=== PATIENT | female | born 1960 | race Caucasian/White ===

== ENCOUNTER → 2019-12-02 | Outpatient (CLI) | payer MEDICAID ==
[~2019-12-02] MED LIST: CARV6.252 PO; CHOL2000 PO; FAMO-79 PO; LISI40TA PO; NICO-430 TD; TERA2CAP3 PO; VERA80TA25 PO
== END | disposition home or self-care (01) ==
LOC: RAD 16:30
PROVIDERS: ATTEND Nurse Practitioner Family
DX: M70.51 Other bursitis of knee, right knee (principal); M79.605 Pain in left leg; L03.91 Acute lymphangitis, unspecified

== ENCOUNTER 2020-05-10 14:49 | Inpatient (IN) | payer MEDICAID ==
[~2020-05-10] VITALS: Ht 157.5 cm; Wt 57.9 kg
--- NOTE | 2020-05-10 15:10 | NUR ---
ASSUMED CARE OF PATIENT. PATIENT BIB [facility] FOR LOW BACK PAIN. VSS. A&OX4. C/O BACK PAIN, N/V, AND HAS MISSED DIALYSIS - LAST SESSION 04/30/20.
[2020-05-10 15:41] LABS: BASOPHILS % (AUTO) 1 % (0-1); EOSINOPHILS % (AUTO) 4 % (1-7); LYMPHOCYTES % (AUTO) 9 % (22-44); MEAN CORPUSCULAR HEMOGLOBIN 29.4 pg (27.0-34.8); MEAN CORPUSCULAR HGB CONC 32.4 g/dL (32.4-35.8); MEAN PLATELET VOLUME 8.4 fL (7.4-10.4); MONOCYTES % (AUTO) 6 % (2-9); NEUTROPHILS % (AUTO) 79 % (42-75); PLATELET COUNT 102 x10^3/uL (130-400); RED BLOOD COUNT 3.09 x10^6/uL (3.82-5.3); RED CELL DISTRIBUTION WIDTH 16.5 % (9.6-15.2)
[2020-05-10 15:52] LABS: ANION GAP 13 mmol/L (5-15); CALCIUM 10.6 mg/dL (8.5-10.1); CHLORIDE 93 mmol/L (98-107)
--- NOTE | 2020-05-10 16:04 | NUR ---
CRITICAL LABS: K+ 6.5 AND BUN 153. NOTIFIED
[2020-05-10 16:11] LABS: MD MORPH REVIEW ONLY
[2020-05-10 16:13] LABS: ANISOCYTOSIS 1+
[2020-05-10 16:14] LABS: <PLATELET ESTIMATE> DECREASED; <PLT MORPHOLOGY> NORMAL PLT MORPH; OVALOCYTES 1+
--- NOTE | 2020-05-10 16:15 | NUR ---
PT RESTING IN ROOM. VS STABLE. NO ACUTE DISTRESS NOTED. CALL LIGHT IN PLACE. WILL CONTINUE TO MONITOR.
[2020-05-10] MEDS ORDERED: ALBUTEROL/IPRATROPIUM 2.5MG/0.5MG, 3 ML NPPB SCH (16:30)
[2020-05-10] MEDS ORDERED: OXYcodone/APAP 5/325MG TABLET PO ONE (16:30)
[2020-05-10] MEDS ORDERED: OXYcodone/APAP 5/325MG TABLET ONE (16:43)
[2020-05-10] MEDS ORDERED: ALBUTEROL/IPRATROPIUM 2.5MG/0.5MG, 3 ML ONE (16:44)
--- NOTE | 2020-05-10 16:52 | NUR ---
DR BUSCH IN ROOM.
--- NOTE | 2020-05-10 16:53 | NUR ---
DR MENDOZA AWARE OF LABS. NO NEW ORDERS AT THIS TIME.
--- NOTE | 2020-05-10 17:00 | NUR ---
PT IS NOT SURE WHAT MEDICATIONS SHE IS ON. DR BUSCH AWARE.
[2020-05-10] MEDS: HEPARIN 5,000 UNITS/ML, 1ML SQ SCH (17:30)
[2020-05-10] MEDS ORDERED: ACETAMINOPHEN 325 MG TABLET PO PRN (17:30)
[2020-05-10 17:39] LABS: ALANINE AMINOTRANSFERASE 11 U/L (12-78); ALBUMIN 3.6 g/dL (3.4-5.0); BILIRUBIN, DIRECT 0.2 mg/dL (0.1-0.2)
[2020-05-10 17:43] LABS: ALKALINE PHOSPHATASE 84 U/L (45-117); BILIRUBIN,INDIRECT 0.5 mg/dL (0.0-2.0); BILIRUBIN,TOTAL 0.7 mg/dL (0.2-1.0); TOTAL PROTEIN 7.5 g/dL (6.4-8.2); TROPONIN I < 0.015 ng/mL (0.000-0.045)
--- NOTE | 2020-05-10 18:16 | NUR ---
report given to FRED Dior for break
--- NOTE | 2020-05-10 18:58 | NUR ---
PT RESTING IN ROOM. VS STABLE. NO ACUTE DISTRESS NOTED. CALL LIGHT IN PLACE. WILL CONTINUE TO MONITOR.
[2020-05-10 21:00] VITALS: BP 161/79
[2020-05-10] MEDS: HYDROcodone/APAP 5/325 TABLET PO PRN (21:39)
[2020-05-10 23:58] LABS: TROPONIN I < 0.015 ng/mL (0.000-0.045)
[2020-05-11 01:12] VITALS: BP 177/82
[2020-05-11 02:21] VITALS: BP 176/84
[2020-05-11] MEDS: HEPARIN 5,000 UNITS/ML, 1ML SQ SCH ×2 (02:22→17:08)
[2020-05-11] MEDS: LACTULOSE 10 GM/15 ML UDC PO SCH ×2 (02:22→08:19)
[2020-05-11] MEDS: ENALAPRILAT 1.25 MG/ML, 2ML IV PRN ×3 (02:56→14:01)
[2020-05-11 05:10] LABS: BASOPHILS % (AUTO) 1 % (0-1); EOSINOPHILS % (AUTO) 4 % (1-7); LYMPHOCYTES % (AUTO) 15 % (22-44); MEAN CORPUSCULAR HEMOGLOBIN 29.5 pg (27.0-34.8); MEAN CORPUSCULAR HGB CONC 32.6 g/dL (32.4-35.8); MEAN PLATELET VOLUME 8.2 fL (7.4-10.4); MONOCYTES % (AUTO) 5 % (2-9); NEUTROPHILS % (AUTO) 75 % (42-75); PLATELET COUNT 106 x10^3/uL (130-400); RED BLOOD COUNT 2.99 x10^6/uL (3.82-5.3); RED CELL DISTRIBUTION WIDTH 16.5 % (9.6-15.2)
[2020-05-11 05:16] LABS: MD NO
[2020-05-11 05:20] LABS: CHLORIDE 97 mmol/L (98-107)
[2020-05-11 05:37] VITALS: BP 173/82
[2020-05-11 05:42] LABS: ALANINE AMINOTRANSFERASE 11 U/L (12-78); ALBUMIN 3.2 g/dL (3.4-5.0); ALKALINE PHOSPHATASE 84 U/L (45-117); ANION GAP 8 mmol/L (5-15); BILIRUBIN,TOTAL 0.7 mg/dL (0.2-1.0); CALCIUM 9.4 mg/dL (8.5-10.1); TOTAL PROTEIN 6.8 g/dL (6.4-8.2)
[2020-05-11 06:40] VITALS: BP 165/73
[2020-05-11] MEDS: ALBUTEROL-IPRATROPIUM MDI INH INH SCH ×5 (07:58→23:30)
[2020-05-11] MEDS ORDERED: HYDR-3343 PO (09:49)
[2020-05-11] MEDS ORDERED: CLON1PAT2 TD (09:53)
[2020-05-11] MEDS ORDERED: NICOTINE 14MG/24 HR PATCH.TD24 TD PRN (10:30)
[2020-05-11 12:05] VITALS: BP 165/74
[2020-05-11] MEDS: HYDROcodone/APAP 5/325 TABLET PO PRN (17:16)
[2020-05-11 19:04] VITALS: BP 162/94
[2020-05-12] VITALS (7 sets, daily range): BP systolic 135–209; BP diastolic 62–87
[2020-05-12] MEDS: LACTULOSE 10 GM/15 ML UDC PO SCH ×3 (01:05→20:41)
[2020-05-12] MEDS: ENALAPRILAT 1.25 MG/ML, 2ML IV PRN (02:07)
[2020-05-12] MEDS: ALBUTEROL-IPRATROPIUM MDI INH INH SCH ×10 (03:00→20:40)
[2020-05-12] MEDS ORDERED: ENALAPRILAT 1.25 MG/ML, 2ML IV ONE (03:30)
[2020-05-12] MEDS: HEPARIN 5,000 UNITS/ML, 1ML SQ SCH ×2 (05:05→17:49)
[2020-05-12 05:47] LABS: ALBUMIN 3.2 g/dL (3.4-5.0); CHLORIDE 100 mmol/L (98-107)
[2020-05-12] MEDS: DILTIAZEM 60 MG TABLET PO SCH ×4 (05:48→21:00)
[2020-05-12 05:53] LABS: % IRON SATURATION 15 % (20-55); ALANINE AMINOTRANSFERASE 7 U/L (12-78); ALKALINE PHOSPHATASE 77 U/L (45-117); ANION GAP 9 mmol/L (5-15); BASOPHILS % (AUTO) 1 % (0-1); BILIRUBIN,TOTAL 0.8 mg/dL (0.2-1.0); CALCIUM 9.1 mg/dL (8.5-10.1); CREATININE 6.06 mg/dL (0.55-1.02); EOSINOPHILS % (AUTO) 5 % (1-7); IRON LEVEL 37 mcg/dL (50-170); LYMPHOCYTES % (AUTO) 21 % (22-44); MEAN CORPUSCULAR HEMOGLOBIN 29.7 pg (27.0-34.8); MEAN CORPUSCULAR HGB CONC 32.3 g/dL (32.4-35.8); MEAN PLATELET VOLUME 8.1 fL (7.4-10.4); MONOCYTES % (AUTO) 7 % (2-9); NEUTROPHILS % (AUTO) 66 % (42-75); PLATELET COUNT 100 x10^3/uL (130-400); RED CELL DISTRIBUTION WIDTH 16.2 % (9.6-15.2); TOTAL IRON BINDING CAPACITY 245 mcg/dL (250-450); TOTAL PROTEIN 6.6 g/dL (6.4-8.2)
[2020-05-12 06:06] LABS: MD NO
[2020-05-12] MEDS: HYDROcodone/APAP 5/325 TABLET PO PRN ×2 (09:29→15:19)
[2020-05-12] MEDS: ONDANSETRON 2MG/ML, 2ML IVPush PRN (11:09)
[2020-05-12] MEDS: NICOTINE 14MG/24 HR PATCH.TD24 TD SCH (17:49)
[2020-05-13 02:27] VITALS: BP 120/82
[2020-05-13] MEDS: DILTIAZEM 60 MG TABLET PO SCH ×4 (03:03→20:42)
[2020-05-13] MEDS: HYDROcodone/APAP 5/325 TABLET PO PRN ×2 (03:04→08:51)
[2020-05-13 05:20] LABS: BASOPHILS % (AUTO) 1 % (0-1); EOSINOPHILS % (AUTO) 2 % (1-7); LYMPHOCYTES % (AUTO) 9 % (22-44); MEAN CORPUSCULAR HEMOGLOBIN 29.5 pg (27.0-34.8); MEAN CORPUSCULAR HGB CONC 32.1 g/dL (32.4-35.8); MEAN PLATELET VOLUME 8.4 fL (7.4-10.4); MONOCYTES % (AUTO) 5 % (2-9); NEUTROPHILS % (AUTO) 84 % (42-75); PLATELET COUNT 105 x10^3/uL (130-400); RED BLOOD COUNT 3.09 x10^6/uL (3.82-5.3); RED CELL DISTRIBUTION WIDTH 16.1 % (9.6-15.2)
[2020-05-13] MEDS: ONDANSETRON 2MG/ML, 2ML IVPush PRN (05:20)
[2020-05-13] MEDS: HEPARIN 5,000 UNITS/ML, 1ML SQ SCH ×2 (05:20→17:54)
[2020-05-13 05:31] LABS: ALBUMIN 3.3 g/dL (3.4-5.0); ANION GAP 4 mmol/L (5-15); CALCIUM 9.7 mg/dL (8.5-10.1); CHLORIDE 102 mmol/L (98-107); CREATININE 4.93 mg/dL (0.55-1.02)
[2020-05-13 05:32] LABS: MD NO
[2020-05-13] MEDS: LACTULOSE 10 GM/15 ML UDC PO SCH (08:36)
[2020-05-13 08:49] VITALS: BP 177/78
[2020-05-13] MEDS ORDERED: PROMETHAZINE 25 MG/ML, 1ML IM PRN (11:00)
[2020-05-13] MEDS ORDERED: OMEPRAZOLE 20 MG CAPSULE.DR PO ONE (11:00)
[2020-05-13 15:07] VITALS: BP 175/74
--- NOTE | 2020-05-13 16:38 | NUR ---
Posted activity sheet and alerted patient and RN Addendum: 05/13/20 at 1638 by Percy Thomas PT Amended: Links added.
[2020-05-13] MEDS: NICOTINE 14MG/24 HR PATCH.TD24 TD SCH (17:54)
[2020-05-13 18:43] VITALS: BP 149/73
[2020-05-14 02:41] VITALS: BP 167/79
[2020-05-14] MEDS: DILTIAZEM 60 MG TABLET PO SCH ×3 (03:13→15:00)
[2020-05-14] MEDS: HYDROcodone/APAP 5/325 TABLET PO PRN ×2 (03:46→08:06)
[2020-05-14] MEDS: HEPARIN 5,000 UNITS/ML, 1ML SQ SCH ×2 (05:47→17:30)
[2020-05-14 06:09] LABS: ALBUMIN 3.5 g/dL (3.4-5.0); ANION GAP 10 mmol/L (5-15); CALCIUM 10.1 mg/dL (8.5-10.1); CHLORIDE 101 mmol/L (98-107); CREATININE 7.17 mg/dL (0.55-1.02)
[2020-05-14 08:00] VITALS: BP 173/72
[2020-05-14 14:26] VITALS: BP 189/82
[2020-05-14] MEDS ORDERED: DILT120C80 PO (16:08)
[2020-05-14] MEDS ORDERED: CLON1PAT2 TD (16:08)
[2020-05-14] MEDS ORDERED: HYDR-3237 PO ×2 (16:08→16:10)
[2020-05-14] MEDS: NICOTINE 14MG/24 HR PATCH.TD24 TD SCH (17:30)
[2020-05-14 17:59] VITALS: BP 157/72
== END 2020-05-14 18:25 | disposition home or self-care (01) | DRG 425 ==
LOC: ED 16:20 → EDIP 16:30 → ED 17:03 → 4WST 19:55
PROVIDERS: ADMIT Internal Medicine; ATTEND Internal Medicine
PROC: 5A1D70Z Performance of Urinary Filtration, Intermittent, Less than 6 Hours Per Day (ICD-10-PCS; principal; 2020-05-11)
DX: E87.5 Hyperkalemia (principal); D63.8 Anemia in other chronic diseases classified elsewhere; D69.6 Thrombocytopenia, unspecified; F17.210 Nicotine dependence, cigarettes, uncomplicated; G89.11 Acute pain due to trauma; I12.0 Hypertensive chronic kidney disease with stage 5 chronic kidney disease or end stage renal disease; J44.9 Chronic obstructive pulmonary disease, unspecified; N18.6 End stage renal disease; Z89.519 Acquired absence of unspecified leg below knee; Z91.15 Patient's noncompliance with renal dialysis; Z99.2 Dependence on renal dialysis; Z91.81 History of falling; Z88.2 Allergy status to sulfonamides
CPT/HCPCS: 36415; 71045; 72110; 72131; 72170; 80048; 80053; 80069; 80076; 82728; 83540; 83550; 83690; 84443; 84484; 85025; 86705; 86706; 87340; 90935; 93005; 93306; 94640; 99285; G0378; J1644; J2405; J2550